=== PATIENT | male | born 1935 | race Caucasian/White ===

== ENCOUNTER 2023-02-14 11:33 | Inpatient (IN) | payer OTHER ==
[~2023-02-14] VITALS: Ht 167.6 cm; Wt 88.2 kg
[~2023-02-14 11:33] MED LIST: ALBU90OI INH; ASPI81CH PO; CYCL10 PO; DESO.05TCA; ERYT.5TO; FLUT44OIA; GRALISE1 EACH; Lisinopril2.5 MG; MONT4; Omeprazole20 M1
[2023-02-14 12:55] LABS: PCO2 Arterial 31.7 mmHg (35-45); PO2 Arterial 66.9 mmHg (80-100); pH Blood Arterial 7.43 (7.35-7.45)
[2023-02-14 13:01] LABS: BASOPHILS ABSOLUTE AUTO 0.05 K/mm3 (0.00-0.23); BASOPHILS PERCENT AUTO 1 % (0-2); EOSINOPHILS ABSOLUTE AUTO 0.24 K/mm3 (0.00-0.68); EOSINOPHILS PERCENT AUTO 4 % (0-6); Hemoglobin 11.5 g/dL (13.5-17.5); IMMATURE GRAN ABSOLUTE AUTO 0.04 K/mm3 (0.00-0.10); IMMATURE GRAN PERCENT AUTO 1 % (0-1); LYMPHOCYTES ABSOLUTE AUTO 0.55 K/mm3 (0.84-5.20); LYMPHOCYTES PERCENT AUTO 9 % (21-46); MONOCYTES ABSOLUTE AUTO 0.78 K/mm3 (0.16-1.47); MONOCYTES PERCENT AUTO 13 % (4-13); Mean Corpuscular HGB 33.1 pg (26.0-34.0); Mean Corpuscular HGB Conc 32.9 g/dL (31.5-36.5); Mean Corpuscular Volume 101 fL (80-100); Mean Platelet Volume 8.8 fL (9.1-12.4); NEUTROPHILS ABSOLUTE AUTO 4.36 K/mm3 (1.96-9.15); NEUTROPHILS PERCENT AUTO 72 % (41-73); Platelet Count 220 K/mm3 (150-400); RDW Coefficient Variation 12.9 % (11.7-14.2); RDW Standard Deviation 47.8 fL (35.1-46.3); Red Blood Cell Count 3.47 M/mm3 (4.30-5.90); White Blood Cell Count 6.02 K/mm3 (4.00-11.30)
[2023-02-14 13:29] LABS: Albumin, Blood 3.3 g/dL (3.4-5.0); Bilirubin, Total 0.4 mg/dL (0.1-1.0); Bun/Creatinine Ratio 16.3 (12.0-20.0); Creatinine, Blood 1.47 mg/dL (0.60-1.20); Globulin, Blood 3.4 g/dL (2.2-4.0); Potassium, Blood 4.4 mmol/L (3.5-5.5); Total Protein, Blood 6.7 g/dL (6.4-8.2)
[2023-02-14] MEDS ORDERED: FLUT1DIS2 INH (16:05)
[2023-02-14] MEDS ORDERED: GABA400 PO (16:06)
[2023-02-14] MEDS ORDERED: OMEP20ER PO (16:06)
[2023-02-14] MEDS ORDERED: Prinivil10 MG PO (16:06)
[2023-02-14] MEDS ORDERED: TRAM50 PO (16:07)
[2023-02-14] MEDS ORDERED: MONT10T PO (16:07)
[2023-02-14] MEDS ORDERED: ORGOVYX120 MG PO (16:09)
[2023-02-14] MEDS ORDERED: ERLEADA240 MG PO (16:09)
--- NOTE | 2023-02-14 18:07 | NUR ---
PT ARRIVED TO MEDICAL FLOOR AT 1530 VIA GURNEY. REPORT FROM SHERMAN TELLO RN. PT USING ACCESSORY MUSCLES TO BREATHE AND HAVING INCREASED DYSPNEA WITH EXERTION. PT CURRENTLY IN BED. SKIN CHECK PERFORMED BY JOAN SINGER RN AND MYSELF. PT HAS NOT HAD COUGH SINCE BEING ON THIS FLOOR BUT REMAINS TO HAVE BODY ACHES. NO C/O PAIN OR N/V. IV PATENT AND FLUSHING WELL.
[2023-02-15 04:34] VITALS: BP 151/75
--- NOTE | 2023-02-15 06:35 | NUR ---
PATIENT IS ALERT AND ORIENTED X4, COOPERATIVE WITH CARE. ON 4L NC WITH HUMIDIFIER. LUNGS ARE DIM, WITH WET NON-PRODUCTIVE COUGH. CONTACT GUARD ASSIST WITH BRP. REFUSED CPAP. IV SL. NO OTHER ISSUES TO REPORT.
[2023-02-15 07:49] VITALS: BP 177/73
[2023-02-15] MEDS ORDERED: DECADRON6 M1 PO (11:16)
[2023-02-15] MEDS ORDERED: CONGESTI PO (11:21)
--- NOTE | 2023-02-15 12:22 | NUR ---
1215 DC HOME WRITTEN & VERBAL DC INSTRUCTIONS GIVEN TO PT WITH DTR PRESENT, BOTH VERBALIZED GOOD UNDERSTANDING. ALL CONCERNS & QUESTIONS ANSWERED. PIV DC'D WITH CATH TIP INTACT, NO REDNESS OR SWELLING NOTED. NEW SCRIPTS FAXED TO [facility]ARM AT [place]. PT'S 2 BOTTLES OF PERSONAL CA MEDS RETURNED TO PT. PT TO PV VIA W/C WITH ALL PERSONAL BELONGINGS.
== END 2023-02-15 14:01 | disposition home or self-care (01) | DRG 177 ==
LOC: ER 11:33 → MEDS 13:48
PROVIDERS: Student in an Organized Health Care Education/Training Program; ADMIT Family Medicine
PROC: XW033E5 Introduction of Remdesivir Anti-infective into Peripheral Vein, Percutaneous Approach, New Technology Group 5 (ICD-10-PCS; principal; 2023-02-14)
PROC: 3E0DX3Z Introduction of Anti-inflammatory into Mouth and Pharynx, External Approach (ICD-10-PCS; 2023-02-14)
PROC: 8E0ZXY6 Isolation (ICD-10-PCS; 2023-02-14)
PROC: 5A09357 Assistance with Respiratory Ventilation, Less than 24 Consecutive Hours, Continuous Positive Airway Pressure (ICD-10-PCS; 2023-02-14)
DX: U07.1 COVID-19 (principal); J96.01 Acute respiratory failure with hypoxia; C85.90 Non-Hodgkin lymphoma, unspecified, unspecified site; J45.909 Unspecified asthma, uncomplicated; G47.30 Sleep apnea, unspecified; N40.0 Benign prostatic hyperplasia without lower urinary tract symptoms; I12.9 Hypertensive chronic kidney disease with stage 1 through stage 4 chronic kidney disease, or unspecified chronic kidney disease; N18.30 Chronic kidney disease, stage 3 unspecified; D63.1 Anemia in chronic kidney disease; J43.9 Emphysema, unspecified; Z88.8 Allergy status to other drugs, medicaments and biological substances; Z79.899 Other long term (current) drug therapy; Z99.89 Dependence on other enabling machines and devices; Z79.51 Long term (current) use of inhaled steroids; Z79.82 Long term (current) use of aspirin; Z79.2 Long term (current) use of antibiotics; Z79.52 Long term (current) use of systemic steroids; Z79.811 Long term (current) use of aromatase inhibitors; Z90.49 Acquired absence of other specified parts of digestive tract; Z98.890 Other specified postprocedural states; Z87.891 Personal history of nicotine dependence
CPT/HCPCS: 36600; 71045; 71260; 80053; 82803; 85025; 93005; 93010; 94640; 94644; 94664; 94760; 94761; 94762; 96374-59; 99285-25; A9270; J0248; J7050; Q9967